=== PATIENT | female | born 1965 | race Caucasian/White ===

== ENCOUNTER 2018-03-01 11:13 | Emergency (ER) | payer MEDICARE, MEDICAID ==
[2018-03-01] MEDS ORDERED: Tetan/Diph/Pertus SYR(Tdap)* 0.5 ML SYR(BOOSTRIX) use SYR IM ONE (12:18)
[2018-03-01] MEDS ORDERED: Lidocaine 1%* 5 ML VIAL INJ ONE (12:18)
--- NOTE | 2018-03-01 12:23 | UC ---
Skin Complaint HPI - HPI Summary HPI Summary: 52-year-old woman comes in to clinic today with chief complaint of a laceration to the left RING finger. This happened a couple hours ago when she axilla definitely dropped a calender wind up tender blade on her hand. Bleeding was controlled by direct pressure. Since then its re-bled with movement. Bleeding was again stopped with direct pressure. No weakness or numbness finger retains its full range of motion. - History of Current Complaint Chief Complaint: UCLaceration Time Seen by Provider: 03/01/18 12:07 Stated Complaint: FINGER LAC Pain Intensity: 7 - Allergy/Home Medications Allergies/Adverse Reactions: Allergies Allergy/AdvReac Type Severity Reaction Status Date / Time No Known Allergies Allergy Verified 03/01/18 11:51 Home Medications: Home Medications Ramipril CAP* [Altace CAP*] 5 mg PO DAILY 03/01/18 [History Confirmed 03/01/18] PMH/Surg Hx/FS Hx/Imm Hx Previously Healthy: Yes Endocrine History: Diabetes Cardiovascular History: Hypertension - Surgical History Surgical History: None - Family History Known Family History: Positive: Non-Contributory - Social History Alcohol Use: Occasionally Substance Use Type: None Smoking Status (MU): Never Smoked Tobacco Review of Systems All Other Systems Reviewed And Are Negative: Yes Constitutional: Positive: Negative Skin: Positive: Other - SEE HPI ENT: Positive: Negative Respiratory: Positive: Negative Cardiovascular: Positive: Negative Gastrointestinal: Positive: Negative Motor: Positive: Negative Neurovascular: Positive: Negative Musculoskeletal: Positive: Negative Neurological: Positive: Negative Psychological: Positive: Negative Is Patient Immunocompromised?: No Physical Exam Triage Information Reviewed: Yes Appearance: Well-Appearing, No Pain Distress, Well-Nourished Vital Signs: Initial Vital Signs Temp 98.4 F 03/01/18 11:48 Pulse 110 03/01/18 11:48 Resp 20 03/01/18 11:48 BP 170/107 03/01/18 11:48 Pulse Ox 100 03/01/18 11:48 Vital Signs Reviewed: Yes Eye Exam: Normal Eyes: Positive: Conjunctiva Clear Neck exam: Normal Neck: Positive: Supple Respiratory: Positive: No respiratory distress Musculoskeletal Exam: Normal Musculoskeletal: Positive: Strength Intact, ROM Intact Neurological Exam: Normal Neurological: Positive: Alert, Muscle Tone Normal Psychological Exam: Normal Psychological: Positive: Normal Response To Family, Age Appropriate Behavior Skin: Positive: Other - : Left ring finger left ring finger on the dorsum has a 1.5 cm subcutaneous laceration. Finger has full range of motion and strength is normal. No sensation deficit. Capillary refill is normal. There is a second 1 cm partial-thickness laceration parallel to the aforementioned laceration. Laceration Repair - Laceration Repair 1 Description: Linear Laceration Size After Repair: Length (cm) - 1.5CM Modified For Repair: Yes Type Injection: Local Anesthesia Used: 1.0% Lido Closure Material: Sutures Closure Method: Single Layer Suture Of: Skin Suture Type: Prolene - #3, 5-0 PROLENE Course/Dx - Diagnoses Provider Diagnosis: Laceration of finger of left hand Discharge - Sign-Out/Discharge Documenting (check all that apply): Patient Departure All imaging exams completed and their final reports reviewed: No Studies - Discharge Plan Condition: Stable Disposition: HOME Patient Education Materials: Care For Your Stitches (ED), Laceration (ED) Referrals: [facility] [Outside] Additional Instructions: FOLLOW UP WITH YOUR DOCTOR. SUTURES OUT IN 8-10 DAYS. YOU WERE GIVEN A TDAP VACCINATION TODAY. GET RECHECKED FOR ANY WORSENING OF YOUR CONDITION; SIGNS OF INFECTION OR QUESTIONS OR CONCERNS. - Billing Disposition and Condition Condition: STABLE Disposition: Home
== END 2018-03-01 13:20 | disposition home or self-care (01) ==
LOC: UCEAST 11:13
DX: W26.8XXA Contact with other sharp object(s), not elsewhere classified, initial encounter (principal); Y93.9 Activity, unspecified; Y92.9 Unspecified place or not applicable; S61.215A Laceration without foreign body of left ring finger without damage to nail, initial encounter; E11.9 Type 2 diabetes mellitus without complications; I10 Essential (primary) hypertension
CPT/HCPCS: 12001; 90471; 90715; 99202; G0463